=== PATIENT | male | born 1995 | race African-American/Black ===

== ENCOUNTER 2018-01-14 00:42 | Emergency (ER) | payer OTHER ==
[~2018-01-14] VITALS: Ht 177.8 cm; Wt 70.0 kg
[2018-01-14 00:47] VITALS: BP 129/70; PULSE 66; RESP 16; TEMP 97.3; O2SAT 97
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
[2018-01-14] MEDS ORDERED: ACETAMINOPHEN 325 MG TAB PO ONE (01:00)
== END 2018-01-14 01:04 ==
LOC: NEPD 00:42
DX: Z03.89 Encounter for observation for other suspected diseases and conditions ruled out (principal)
CPT/HCPCS: 99283